=== PATIENT | female | born 1985 | race Caucasian/White ===

== ENCOUNTER 2023-05-06 23:11 | Observation (INO) | payer BC, MEDICAID, SELFPAY ==
[2023-05-06 23:12] VITALS: BP 140/85; PULSE 85; RESP 16; TEMP 36.4; O2SAT 96; BMI 26.7
--- NOTE | 2023-05-06 23:23 | EDS_ITS ---
HPI History of Present Illness Chief Complaint: Substance Abuse Informant: patient Narrative Narrative: Presents private vehicle for assistance for fentanyl dependence. She has been using for 6 years. She states she smokes up to 1 to 2 g a day. Last use was 24 hours ago. Slight stomach cramping and muscle aches. No nausea or vomiting. No fevers. No sweats. She got help for this over a year ago in [place] she was able to stay off it up to 3 months ago when she relapsed. She denies homicidal suicidal ideations. She denies any other recreational substance. Denies alcohol. Hysterectomy in the past. History asthma, anxiety, depression. Prior similar symptoms: Yes PFSH PFS Medical History Anxiety Depression Home Medications Unobtainable 05/06/23 [History Last Taken Unknown] Allergy/AdvReac Type Severity Reaction Status Date / Time amoxicillin Allergy Mild Rash Verified 05/06/23 23:12 Surgical History History of thyroidectomy, subtotal ROS ROS ED Constitutional Constitutional ED: Denies chills, fever(s) or sweats Eyes Eyes: Denies change in vision ENT ENT ED: Denies dysphagia or sore throat Cardiovascular Cardiovascular: Denies chest pain, leg edema, palpitations or racing heartbeat Respiratory/Chest Respiratory/Chest: Denies cough, dyspnea or dyspnea on exertion Gastrointestinal Gastrointestinal: Reports other Details: Mild stomach cramps. ; Denies abdominal pain, diarrhea, nausea or vomiting Genitourinary Genitourinary ED: Denies dysuria, hematuria or urinary frequency Musculoskeletal Musculoskeletal: Reports myalgias; Denies back pain, extremity pain or neck pain Integumentary Denies rash or wounds Neurologic Neurologic: Denies headache(s), paresthesias or weakness EXAM Physical Exam Const Vital Signs: 05/06/23 23:12 Temperature 97.5 F L Temperature Source Temporal Pulse Rate 85 Respiratory Rate 16 Blood Pressure 140/85 H Blood Pressure Mean 103 Pulse Ox 96 Positive well nourished and well developed Constitutional Narrative: Nontoxic. General Appearance ED: well developed and NAD HEENT Reports moist mucous membranes HEENT Narrative: Scattered facial circular scabbing lesions, no drainage. normocephalic and atraumatic Eyes PERRL, EOMs intact bilaterally and conjunctivae normal General Eye ED: Yes normal appearance of both eyes Neck no lymphadenopathy and supple General: Negative for tenderness Chest Wall Chest: Negative for tenderness Resp normal respiratory effort and normal air movement Effort and Inspection: symmetric chest movement; Negative for respiratory distress Cardio regular rate, regular rhythm and no murmurs Peripheral Pulses: pulses 2+ throughout GI normal to inspection, nondistended, normoactive bowel sounds and non-tender GI Narrative: Negative Fuentes's or McBurney's tenderness. Palpation: Negative for guarding or rebound tenderness present Back/Spine no CVA tenderness and no thoracic nor lumbar tenderness Extremity normal to inspection General Extremety ED: Negative for edema or tenderness General Extremity: Negative for edema Neuro oriented x3 and no sensory deficits noted Sensorium / Orientation: awake and alert Skin Skin Narrative: Scattered circular scabbing lesions bilateral hands and distal forearms. No tracking cisneros of forearms. No drainage. MDM MDM MDM Narrative Medical decision making narrative: Interventions / MDM: Differential diagnosis: Opioid dependence, history of anxiety and depression, electrolyte abnormalities Diagnosis considered but do not suspect: N/A My EKG interpretation: N/A Imaging independently reviewed and interpreted by myself: N/A External documents reviewed: N/A Test considered but not ordered:N/A ED course: Patient vital stable nontoxic. Here for assistance for opioid dependence. Hysterectomy in the past. Medical clearance labs obtained. Will discuss with hospitalist service for admission. Re-evaluation: stable , toxicology positive amphetamines, ecstasy, THC. Alcohol negative. Labs with potassium 3.2, oral replacement given. I discussed with hospitalist Dr. Chaves for admission. Disposition discussed with patient/family/significant other: Patient Case discussed with consulting clinician: Hospitalist This note was generated with [employer] dictation software. It may contain incorrect words, spelling, and punctuation that were not noted in checking the note before signing. Lab Data Attestation: I reviewed the patient's lab results. Labs: Laboratory Results - last 24 hr 05/06/23 05/06/23 23:35 23:50 WBC 9.5 RBC 4.74 Hgb 13.5 Hct 41.9 MCV 88.4 MCH 28.5 MCHC 32.2 RDW Std Deviation 44.7 H RDW Coeff of Courtney 13.7 Plt Count 290 MPV 12.5 H Immature Gran % (Auto) 0.500 Neut % (Auto) 55.5 Lymph % (Auto) 33.5 [place] % (Auto) 7.8 Eos % (Auto) 2.3 Baso % (Auto) 0.4 Absolute Neuts (auto) 5.3 Absolute Lymphs (auto) 3.18 Nucleated RBC % 0 Sodium 139 Potassium 3.2 L Chloride 106 Carbon Dioxide 27.0 Anion Gap 6 BUN 11 Creatinine 0.61 Estim Creat Clear Calc 115.91 Est GFR (MDRD) Af Amer 140 Est GFR (MDRD) Non-Af 115 BUN/Creatinine Ratio 18.0 Glucose 98 Calcium 8.4 L Urine Opiates Screen NEGATIVE Urine Methadone Screen NEGATIVE Ur Barbiturates Screen NEGATIVE Ur Phencyclidine Scrn NEGATIVE Ur Amphetamines Screen POSITIVE H MDMA (Ecstasy) Screen POSITIVE H U Benzodiazepines Scrn NEGATIVE Urine Cocaine Screen NEGATIVE U Cannabinoids Screen POSITIVE H Ur Drug Screen Comment Ethyl Alcohol < 3.0 Discharge Plan Dx/Rx/DC Orders Clinical Impression: Opioid dependence, History of anxiety, History of depression, Polysubstance abuse, Acute hypokalemia Disposition Disposition: Acute Care Hospital [facility]
[2023-05-07] VITALS (7 sets, daily range): BP systolic 116–169; BP diastolic 67–93; PULSE 79–102; RESP 17–18; TEMP 35.8–37.1; O2SAT 91–100; BMI 26.1
[2023-05-07] LABS: Amphetamine Urine VISTA POSITIVE (<1000 ng/mL); Barbiturate Urine VISTA NEGATIVE (< 200 ng/mL); Benzodiazepine Urine VISTA NEGATIVE (< 200 ng/mL); Cocaine Urine VISTA NEGATIVE (< 300 ng/mL); Ecstacy Urine VISTA POSITIVE (< 500 ng/mL); Methadone Urine VISTA NEGATIVE (< 300 ng/mL); PCP Urine VISTA NEGATIVE (< 25 ng/mL); THC Urine VISTA POSITIVE (< 50 ng/mL); Vista UDS pH Range 5
[2023-05-07 00:01] LABS: Absolute Lymphocyte Count 3.18 X10^3/uL (0.83-4.51); Absolute Neutrophil Count 5.3 X10^3/uL (2.0-7.7); Basophil# 0.04 X10^3/uL; Basophil% 0.4 % (0-1); Eosinophil# 0.22 X10^3/uL; Eosinophils% 2.3 % (0-5); Hematocrit 41.9 % (37-47); Hemoglobin 13.5 g/dL (12.0-15.0); Lymphocyte # 3.18 X10^3/ul (0.83-4.51); Lymphocyte % 33.5 % (19-41); Mean Corp Hgb Conc 32.2 g/dL (32-36); Mean Corpuscular Hgb 28.5 pg (27.0-32.0); Mean Corpuscular Volume 88.4 fL (81-99); Mean Platelet Vol. 12.5 fl (6.2-12.0); Monocyte# 0.74 X10^3/uL; Monocyte% 7.8 % (0-10); NRBC Flagged by Analyzer 0 % (0-5); Neutrophil # 5.25 X10^3/uL (2.7-7.7); Neutrophil % 55.5 % (47-70); Platelet Count 290 K/mm3 (150-450); RBC Distribution Width CV 13.7 % (11.6-14.6); RBC Distribution Width SD 44.7 fl (35.1-43.9); Red Blood Count 4.74 M/mm3 (4.2-5.4); White Blood Count 9.5 K/mm3 (4.4-11.0)
[2023-05-07 00:17] LABS: Anion Gap 6 (5-15); BUN 11 mg/dL (7-18); Calcium,Total 8.4 mg/dL (8.5-10.1); Chloride 106 mmol/L (98-107); Creatinine, Serum 0.61 mg/dL (0.55-1.02); EST Glomerular Filtration Rate 115 mL/min (>60); Est Glom Filt Rate - Afr Amer 140 mL/min (>60); Estimated Creatinine Clearance 115.91 ml/min; Glucose 98 mg/dL (74-106); Potassium 3.2 mmol/L (3.5-5.1); Sodium Level 139 mmol/L (136-145)
[2023-05-07] MEDS: Potassium Chloride Oral Tablet 20 MEQ 40 MEQ PO (00:37)
[2023-05-07 00:43] LABS: Alcohol, Blood (Medical)-Serum < 3.0 mg/dL
--- NOTE | 2023-05-07 01:42 | HP.PCM.HOS_ITS ---
[facility] - General General Date of Admission: 05/07/23 Date of Service: 05/07/23 Chief Complaint: Desire of detoxification HPI Narrative JERAMY ANGEL, is a 37 F with a significant history of anxiety, depression and asthma who presents to the emergency department with opioid detoxification. Of note patient reports using fentanyl. She has been on fentanyl for the past 6 years. She uses about 2 g/day. She snorts it. Last time she used was about 24 hours prior to presentation. She reports withdrawal symptoms of feeling of her legs crawling and her whole body crawling. She reports nausea and vomiting. She feels restless. She reports being at a rehab center a year ago. She reports the rehab center as [facility] [place], [place]. COUNTS INCLUDE 234 BEDS AT THE [facility] Medical History Anxiety Depression Home Medications Unobtainable 05/06/23 [History Last Taken Unknown] Allergy/AdvReac Type Severity Reaction Status Date / Time amoxicillin Allergy Mild Rash Verified 05/06/23 23:12 Family History Other Diabetes Surgical History History of thyroidectomy, subtotal Social History Smoking Status: Current every day smoker tobacco type: cigarettes ROS ROS Narrative Pertinent positives and pertinent negatives as noted in HPI. All other systems were reviewed and are negative Vital Signs Vital Signs Vital Signs: 05/06/23 23:12 05/07/23 00:56 05/07/23 01:26 Temperature 97.5 F L 96.5 F L 98 F Temperature Source Temporal Temporal Oral Pulse Rate 85 102 H 100 Respiratory Rate 16 18 18 Blood Pressure 140/85 H 140/67 H 144/93 H Blood Pressure Mean 103 91 110 Blood Pressure Source Monitor Blood Pressure Position Semi-Fowlers Blood Pressure Location Right Arm Pulse Ox 96 97 100 Oxygen Delivery Method Room Air Room Air Weight Weight: 73.8 kg Body Mass Index (BMI) 26.1 Physical Exam Narrative Physical exam: General: Well-nourished, well-developed. Head: Normocephalic, atraumatic, no tenderness Eyes: Vision is grossly intact. EOMI ENT, no trauma, moist mucous membranes, no rhinorrhea Neck: Nontender, No thyromegaly. CVS: Regular rate and rhythm. S1-S2 present. No murmur, gallop or rub. Respiratory : clear to auscultation bilaterally, chest wall nontender Abdomen: Soft, nontender, nondistended, normal bowel sounds, no masses : Deferred Back: Nontender, no CVA tenderness, no midline spinal tenderness, deformities, step-offs Extremities: Nontender full range of motion, no trauma Skin: Patient with petechiae rash on face. Normal color, no trauma, abrasions Neuro: Alert, oriented, cranial nerves II through XII grossly intact. Psychiatry: Yawning repeatedly in bed. Anxious. Results Lab / Micro Data 05/06/23 23:50 05/06/23 23:50 Labs: Laboratory Results - last 24 hr 05/06/23 23:35: Urine Opiates Screen NEGATIVE, Urine Methadone Screen NEGATIVE, Ur Barbiturates Screen NEGATIVE, Ur Phencyclidine Scrn NEGATIVE, Ur Amphetamines Screen POSITIVE H, MDMA (Ecstasy) Screen POSITIVE H, U Benzodiazepines Scrn NEGATIVE, Urine Cocaine Screen NEGATIVE, U Cannabinoids Screen POSITIVE H, Ur Drug Screen Comment 05/06/23 23:50: WBC 9.5, RBC 4.74, Hgb 13.5, Hct 41.9, MCV 88.4, MCH 28.5, MCHC 32.2, RDW Std Deviation 44.7 H, RDW Coeff of Courtney 13.7, Plt Count 290, MPV 12.5 H , Immature Gran % (Auto) 0.500, Neut % (Auto) 55.5, Lymph % (Auto) 33.5, [place] % (Auto) 7.8, Eos % (Auto) 2.3, Baso % (Auto) 0.4, Absolute Neuts (auto) 5.3, Absolute Lymphs (auto) 3.18, Nucleated RBC % 0, Sodium 139, Potassium 3.2 L, Chloride 106, Carbon Dioxide 27.0, Anion Gap 6, BUN 11, Creatinine 0.61, Estim Creat Clear Calc 115.91, Est GFR (MDRD) Af Amer 140, Est GFR (MDRD) Non-Af 115, BUN/Creatinine Ratio 18.0, Glucose 98, Calcium 8.4 L, Ethyl Alcohol < 3.0 Assessment & Plan Assessment/Plan (1) Desire for detoxification: (2) Acute hypokalemia: (3) Polysubstance abuse: PLAN: Plan Opioid dependence and withdrawal Patient be started on Subutex and other adjunctive medications: Gabapentin as needed; dicyclomine as needed; Vistaril as needed; methocarbamol as needed; clonidine as needed; Imodium as needed; trazodone as needed and Zofran as needed. Monitor COWS and CINA score Tobacco abuse Counseled Nicotine patch prescribed. Acute hypokalemia Potassium of 3.2 on presentation. Replace. DVT prophylaxis Low risk Encourage to ambulate
[2023-05-07] MEDS: Gabapentin 300 MG Capsule PO ×2 (02:08→17:01)
[2023-05-07] MEDS: Methocarbamol 750 MG Tablet 1500 MG PO ×3 (02:08→22:33)
[2023-05-07] MEDS: traZODone 100 MG Tablet PO ×2 (02:08→22:33)
[2023-05-07] MEDS: hydrOXYzine PAM 25 MG Capsule 50 MG PO ×3 (04:03→22:33)
[2023-05-07] MEDS: Buprenorphine HCl 2 MG TAB.SUBL SL ×3 (04:03→19:00)
--- NOTE | 2023-05-07 07:27 | PN.HOSP_ITS ---
Reason for Visit Reason for Visit: Opiate detox Subjective Subjective Ms. Price is a 37-year-old white female who presented to the emergency department was prehospital for opiate detoxification. She uses fentanyl and has been using so for the past 6 years. She admits to using about 2 g a day which she use intranasally. Her last use was about 24 hours before presentation. Withdrawal symptoms upon presentation was a feeling of crawling in her legs and her whole body as well as some nausea and vomiting. She reported feeling restless. She indicated she had been in a rehab center about 1 year ago in [facility]. Objective Data Objective Data Vital Signs: Vital Signs Temp Pulse Resp BP Pulse Ox O2 Del Method 98.2 F 99 18 169/78 H 97 Room Air 05/07/23 04:05 05/07/23 04:05 05/07/23 04:05 05/07/23 04:05 05/07/23 04:05 05/07/23 04:05 Oxygen Delivery Method Room Air Weight: 73.8 kg Body Mass Index (BMI) 26.1 Lab / Micro Data 05/06/23 23:50 05/06/23 23:50 Labs: Laboratory Results - last 24 hr 05/06/23 23:35: Urine Opiates Screen NEGATIVE, Urine Methadone Screen NEGATIVE, Ur Barbiturates Screen NEGATIVE, Ur Phencyclidine Scrn NEGATIVE, Ur Amphetamines Screen POSITIVE H, MDMA (Ecstasy) Screen POSITIVE H, U Benzodiazepines Scrn NEGATIVE, Urine Cocaine Screen NEGATIVE, U Cannabinoids Screen POSITIVE H, Ur Drug Screen Comment 05/06/23 23:50: WBC 9.5, RBC 4.74, Hgb 13.5, Hct 41.9, MCV 88.4, MCH 28.5, MCHC 32.2, RDW Std Deviation 44.7 H, RDW Coeff of Courtney 13.7, Plt Count 290, MPV 12.5 H , Immature Gran % (Auto) 0.500, Neut % (Auto) 55.5, Lymph % (Auto) 33.5, [place] % (Auto) 7.8, Eos % (Auto) 2.3, Baso % (Auto) 0.4, Absolute Neuts (auto) 5.3, Absolute Lymphs (auto) 3.18, Nucleated RBC % 0, Sodium 139, Potassium 3.2 L, Chloride 106, Carbon Dioxide 27.0, Anion Gap 6, BUN 11, Creatinine 0.61, Estim Creat Clear Calc 115.91, Est GFR (MDRD) Af Amer 140, Est GFR (MDRD) Non-Af 115, BUN/Creatinine Ratio 18.0, Glucose 98, Calcium 8.4 L, Ethyl Alcohol < 3.0 Assessment & Plan Assessment/Plan (1) Desire for detoxification: (2) Acute hypokalemia: PLAN: Plan Acute opiate withdrawal -Patient using 2 g daily -Last use before admission was 24 hours -Symptomatic on presentation -Subutex per COWS protocol -Supportive medication for symptom control -Of note her toxicology screen was positive for marijuana and amphetamines/MDMA -180 consultation Hypokalemia -Potassium 3.2 on presentation -Oral supplementation given Tobacco abuse -Cessation recommended -Continue nicotine patch DVT prophylaxis -Low risk -Encourage frequent and early ambulation CODE STATUS -Full code
--- NOTE | 2023-05-07 10:55 | ADDICTION ---
Pt was met w/to complete RAMP assessment, ASAM, Mental Status, D/C Plan, AUDIT and DUDIT. Pt refused to participate in the majority of the session d/t self reported intensity of acute w/d sxs interfering w/pt's ability to engage in discussion and discharge planning. Pt's ASAM was completed and she appears to meet ASAM criteria for a 4.0LoC. Pt presents w/extremely high relapse risk and she could benefit from screening for residential treatment. Pt declined a desire to seek residential after detox, but indicated that she may be more open to other treatment options once her w/d sxs are better managed. Pt refused to complete the discharge plan, AUDIT, and DUDIT and states I just can't do this right now, I can't even think straight. Pt requested that someone come back to talk to her in a couple days once I am feeling better. Pt was provided information on detox process and the need to follow up with tx after detox. Clinician Agustina Heath will be notified that pt's RAMP assessment is incomplete and an AUDIT, DUDIT, and D/C Plan still needs completed.
[2023-05-07] MEDS: Dicyclomine 10 MG Capsule 20 MG PO (11:27)
[2023-05-07] MEDS: Ondansetron 8 MG Tablet PO (17:08)
[2023-05-08] MEDS: Buprenorphine HCl 2 MG TAB.SUBL SL ×3 (03:23→19:52)
[2023-05-08 03:31] VITALS: BP 155/66; PULSE 87; RESP 18; TEMP 37; O2SAT 97
[2023-05-08 07:59] LABS: Anion Gap 6 (5-15); BUN 14 mg/dL (7-18); Chloride 109 mmol/L (98-107); Creatinine, Serum 0.56 mg/dL (0.55-1.02); EST Glomerular Filtration Rate 127 mL/min (>60); Est Glom Filt Rate - Afr Amer 154 mL/min (>60); Estimated Creatinine Clearance 126.26 ml/min; Glucose 96 mg/dL (74-106); Potassium 3.5 mmol/L (3.5-5.1); Sodium Level 139 mmol/L (136-145)
[2023-05-08 09:30] VITALS: BP 144/88; PULSE 87; RESP 16; TEMP 36; O2SAT 94
[2023-05-08 10:00] VITALS: PULSE 87
[2023-05-08] MEDS: Ondansetron 8 MG Tablet PO (10:31)
--- NOTE | 2023-05-08 12:38 | PCM.PN.HOSP ---
Reason for Visit Reason for Visit: Opiate detox Subjective Subjective Patient complaining of nausea and vomiting. States she has not eaten anything which she is got here however electrolytes are stable and her BUN and creatinine are normal. Complaining of withdrawal symptoms but no other pertinent symptoms at this time. Lying in bed and appears comfortable at the time of my evaluation. Nursing was at bedside. Objective Data Objective Data Vital Signs: Vital Signs Temp Pulse Resp BP Pulse Ox O2 Del Method 96.8 F L 87 16 144/88 H 94 Room Air 05/08/23 09:30 05/08/23 10:00 05/08/23 09:30 05/08/23 09:30 05/08/23 09:30 05/08/23 09:30 Oxygen Delivery Method Room Air Weight: 73.8 kg Body Mass Index (BMI) 26.1 Intake & Output: Intake and Output for Last 24 Hours 05/06/23 05/07/23 05/08/23 23:59 23:59 23:59 Intake Total 420 / 420 320 / 320 Balance 420 / 420 320 / 320 Lab / Micro Data 05/06/23 23:50 05/08/23 06:50 Labs: Laboratory Results - last 24 hr 05/08/23 06:50: Sodium 139, Potassium 3.5, Chloride 109 H, Carbon Dioxide 24.0, Anion Gap 6, BUN 14, Creatinine 0.56, Estim Creat Clear Calc 126.26, Est GFR (MDRD) Af Amer 154, Est GFR (MDRD) Non-Af 127, BUN/Creatinine Ratio 25.0 H, Glucose 96, Calcium 9.0 Physical Exam Const alert, oriented x3, no apparent distress and well nourished Constitutional Narrative: Middle-aged, white female, appears much older than stated age, lying in bed, does not appear uncomfortable, nontoxic, nursing at bedside HEENT head/scalp atraumatic and moist oral mucous membranes HEENT Narrative: Dentition is poor, Mallampati 2, no thrush Head and Scalp: normocephalic Resp normal respiratory effort, no retractions, no use of accessory muscles and clear to auscultation bilaterally Resp Narrative: Diffusely diminished but clear Auscultation: Negative for rales, rhonchi or wheezes Cardio regular rate, regular rhythm, S1 normal heart sound, S2 normal heart sound, no murmurs, no rub, no gallops and no clicks GI normal to inspection, nondistended, normoactive bowel sounds, soft to palpation and non-tender Extremity no clubbing, cyanosis or edema Extremity Narrative: Pedal pulses are 2+ Neuro oriented x3, moves all extremities and no focal motor deficits Speech: speech normal Psych Negative for affect normal Psych Narrative: Affect is flat and mood is depressed Mood & Affect: depressed Assessment & Plan Assessment/Plan (1) Desire for detoxification: (2) Acute hypokalemia: (3) Polysubstance abuse: PLAN: Plan Plan Acute opiate withdrawal -Patient using 2 g daily -Last use before admission was 24 hours -Symptomatic on presentation -Subutex per COWS protocol -Supportive medication for symptom control -Of note her toxicology screen was positive for marijuana and amphetamines/MDMA -180 consultation--> await input as patient refused to talk to them yesterday because she was still feeling poorly Hypokalemia -Resolved -Potassium this morning 3.5 Tobacco abuse -Cessation recommended -Continue nicotine patch DVT prophylaxis -Low risk -Encourage frequent and early ambulation CODE STATUS -Full code Charges/Coding Visit Charges Inpatient E&M: 03749 Subs Hosp L1
[2023-05-08] MEDS: Loperamide 2 MG Capsule PO (13:39)
[2023-05-08 14:30] VITALS: BP 138/74; PULSE 80; RESP 14; TEMP 36.4; O2SAT 96
[2023-05-08] MEDS: Gabapentin 300 MG Capsule PO (15:44)
[2023-05-08 16:00] VITALS: PULSE 80
[2023-05-08 19:50] VITALS: BP 138/73; PULSE 89; RESP 16; TEMP 37.1; O2SAT 95
[2023-05-08] MEDS: Methocarbamol 750 MG Tablet 1500 MG PO (19:57)
[2023-05-08] MEDS: hydrOXYzine PAM 25 MG Capsule 50 MG PO (21:53)
[2023-05-08] MEDS: traZODone 100 MG Tablet PO (21:53)
[2023-05-09] MEDS: Buprenorphine HCl 2 MG TAB.SUBL SL (02:37)
[2023-05-09] MEDS: Ibuprofen 400 MG Tablet PO (02:37)
[2023-05-09] MEDS: Gabapentin 300 MG Capsule PO (02:40)
[2023-05-09] MEDS: Ondansetron 8 MG Tablet PO ×2 (02:40→09:54)
--- NOTE | 2023-05-09 08:25 | PCM.PN.HOSP ---
Reason for Visit Reason for Visit: Diagnoses Hypokalemia (05/07/23) Other psychoactive substance abuse, uncomplicated (05/07/23) Subjective Subjective Feels better. Objective Data Objective Data Vital Signs: Vital Signs Temp Pulse Resp BP Pulse Ox O2 Del Method 37.1 C 89 16 138/73 H 95 Room Air 05/08/23 19:50 05/08/23 19:50 05/08/23 19:50 05/08/23 19:50 05/08/23 19:50 05/08/23 19:50 Oxygen Delivery Method Room Air Weight: 73.8 kg Body Mass Index (BMI) 26.1 Intake & Output: Intake and Output for Last 24 Hours 05/07/23 05/08/23 05/09/23 23:59 23:59 23:59 Intake Total 420 / 420 620 / 620 Balance 420 / 420 620 / 620 Lab / Micro Data 05/06/23 23:50 05/08/23 06:50 Physical Exam Const alert and no apparent distress HEENT head/scalp atraumatic Resp normal respiratory effort, no retractions and no use of accessory muscles Cardio regular rate, regular rhythm, S1 normal heart sound and S2 normal heart sound GI normal to inspection, nondistended, normoactive bowel sounds, soft to palpation, non-tender and non-distended Assessment & Plan Assessment/Plan (1) Opiate withdrawal: PLAN: Acute opiate withdrawal Patient using 2 g daily Last use before admission was 24 hours Symptomatic on presentation Subutex per COWS protocol Supportive medication for symptom control Of note her toxicology screen was positive for marijuana and amphetamines/MDMA 180 consultation--> await input as patient refused to talk to them yesterday because she was still feeling poorly PLAN: Plan Tobacco abuse -Cessation recommended -Continue nicotine patch DVT prophylaxis -Low risk -Encourage frequent and early ambulation CODE STATUS -Full code
[2023-05-09 09:43] VITALS: BP 112/89; PULSE 78; RESP 16; TEMP 36.8; O2SAT 99
[2023-05-09] MEDS: Methocarbamol 750 MG Tablet 1500 MG PO (09:55)
[2023-05-09] MEDS: Loperamide 2 MG Capsule PO (09:55)
[2023-05-09] MEDS: hydrOXYzine PAM 25 MG Capsule 50 MG PO (09:55)
--- NOTE | 2023-05-09 13:02 | ADDICTION ---
Pt has been approved for [facility] residential treatment in [facility]. They will provide transportation.
[2023-05-09 13:50] VITALS: BP 132/66; PULSE 81; RESP 16; TEMP 36.5; O2SAT 98
--- NOTE | 2023-05-09 14:01 | DCINST_ITS ---
Discharge Instructions Diet Discharge Diet: No restrictions Follow Up Care Test Results: Test results from this visit will be discussed in further detail at your follow- up appointment, if applicable. Discharge Plan Admission Admit Date/Time: 05/07/23 01:10 Primary Reason for Your Visit: opiate withdrawal Attending Provider: Quan Queen Primary Care Provider: Juanjose Neely,No Primary Consulting Providers: Lj Chaves; Teena Emanuel Instructions Additional Instructions / Restrictions: Follow with [facility] Discharge Orders/Prescriptions Prescriptions: No Action Unobtainable Referrals / Follow Up: Care Physician,No Primary [Primary Care Provider] - NOT,DEFINED [Non-Staff] - Disposition Disposition (needs filled in before D/C Order can be placed): Home, Self Care
--- NOTE | 2023-05-09 14:03 | PCM.DC.SUM ---
Providers Date of Admission: 05/07/23 Primary Care Physician: Chantel Primary Care Phys Reason For Visit: DESIRE FOR DETOXIFICATION Diagnosis Discharge Diagnosis (1) Opiate withdrawal: Status: Acute Code(s): F11.93 - Opioid use, unspecified with withdrawal Plan: Acute opiate withdrawal Patient using 2 g daily Last use before admission was 24 hours Symptomatic on presentation Subutex per COWS protocol Supportive medication for symptom control Of note her toxicology screen was positive for marijuana and amphetamines/MDMA 180 consultation--> await input as patient refused to talk to them yesterday because she was still feeling poorly Pt to be discharged to [facility] for further addiction and counseling. Plan Tobacco abuse -Cessation recommended -Continue nicotine patch DVT prophylaxis -Low risk -Encourage frequent and early ambulation CODE STATUS -Full code Medications at Discharge Home Medications Unobtainable 05/06/23 Weight / BMI Weight Weight: 73.8 kg Body Mass Index (BMI) 26.1 ABG / Lab / Microbiology Data 05/06/23 23:50 05/08/23 06:50 D/C Instructions Discharge Diet: No restrictions Meaningful Use Info Meaningful Use Diagnoses (Choose all that apply): None applicable Discharge Plan Admission Admit Date/Time: 05/07/23 01:10 Primary Reason for Your Visit: opiate withdrawal Attending Provider: Quan Queen Primary Care Provider: Care Physician,No Primary Consulting Providers: Lj Chaves; Teena Emanuel Instructions Additional Instructions / Restrictions: Follow with [facility]. Discharge Orders/Prescriptions Prescriptions: No Action Unobtainable Referrals / Follow Up: Care Physician,No Primary [Primary Care Provider] - NOT,DEFINED [Non-Staff] - Disposition Disposition (needs filled in before D/C Order can be placed): Home, Self Care Charges/Coding Visit Charges Inpatient E&M: 47790 Disch Hosp
== END 2023-05-09 14:07 | disposition home or self-care (01) | DRG 897 ==
LOC: ED 23:40 → MS3 05-07 01:21
PROVIDERS: Internal Medicine; Admitting Provider Hospitalist; Emergency Provider Emergency Medicine
DX: F11.23 Opioid dependence with withdrawal (principal); E87.6 Hypokalemia; J45.909 Unspecified asthma, uncomplicated; F17.210 Nicotine dependence, cigarettes, uncomplicated
CPT/HCPCS: 36415; 80048; 80307; 80320; 85025; 99221; 99283; H0012; G0378; G0480